=== PATIENT | male | born 1985 | race Caucasian/White ===

== ENCOUNTER 2016-08-06 11:03 | Emergency (ER) | payer OTHER ==
[~2016-08-06] VITALS: Ht 175.3 cm; Wt 85.0 kg
[2016-08-06 11:06] VITALS: Ht 175.3 cm; Wt 85.0 kg
[2016-08-06] MEDS ORDERED: KETOROLAC 30 MG INJ IM STA (11:43)
[2016-08-06] MEDS ORDERED: DIPHTH/TET/ACEL PERTUSS (ADULT) 0.5 ML VIAL IM* ONE (12:00)
--- NOTE | 2016-08-06 12:35 | RADRPT ---
PROCEDURE: XR left forearm. CLINICAL INDICATION: Pain. TECHNIQUE: Two views are available for review. COMPARISON: None. FINDINGS: No fracture or osseous lesion. Normal mineralization and alignment. Soft tissues are unremarkable. IMPRESSION: 1. No fracture or osseous abnormality involving the left forearm. RPTAT: EE .Dante Loera MD, Date Time Electronically viewed and signed by .Dante Loera MD, on 08/06/2016 12:39 .C/
[2016-08-06] MEDS ORDERED: IBUP-1542 PO (13:20)
[2016-08-06 13:36] VITALS: BP 160/80; PULSE 55; RESP 18; TEMP 98.1
--- NOTE | 2016-08-06 13:54 | ERD ---
ER Documentation Chief Complaint Date/Time DATE: 08/06/16 TIME: 13:46 Chief Complaint lt arm pain , smashed in roller machine at work HPI This is a 31-year-old male who presents to the ED with left arm pain due to crush injury. Patient was at work today when his left arm got pulled through a metal roller, patient was able to pull out his left arm. Patient developed left arm pain and swelling afterwards. Patient did not take any medications for symptom relief. Denies any fever, numbness, tingling or weakness. Pt unable to recall last tetanus immunization. Medical surgical history are unremarkable. ROS All systems reviewed and are negative except as per history of present illness. Medications Home Meds Active Scripts Ibuprofen* (Motrin*) 600 Mg Tab, 600 MG PO Q6H Y for PAIN AND OR ELEVATED TEMP, #30 TAB Prov:ERROL CEDEÑO 08/06/16 PMhx/Soc Medical and Surgical Hx: pt denies Medical Hx, pt denies Surgical Hx Hx Alcohol Use: No Hx Substance Use: No Hx Tobacco Use: No Smoking Status: Never smoker Physical Exam Vitals Vital Signs Date Time Temp Pulse Resp B/P Pulse Ox O2 Delivery O2 Flow Rate FiO2 08/06/16 13:36 98.1 55 18 160/80 98 Room Air 08/06/16 11:06 98.1 78 18 166/81 98 Physical Exam Physical Exam CONST: Well-developed, well-nourished, in no acute distress. Nontoxic in appearance. HEENT: Atraumatic. Normal conjunctiva. EOM intact. TM intact. External ear is normal. Clear oropharnyx without erythema. No uvular deviation. Moist mucous membranes. Supple neck. No meningismus. No submandibular induration. RESP: Clear to auscultation bilaterally. No wheezing. CARDIO: Regular rate and rhythm, no murmurs. ABD: Soft, non tender, non distended. Normal bowel sounds. No McBurney's point tenderness. No guarding or rigidity. No peritoneal signs. SKIN: Multiple small abrasions on left forearm. No active bleeding. No foreign body or erythema. No petechiae or rashes. BACK: No midline or flank tenderness. EXT: Localized swelling on left forearm. Distal pulses equal and bilateral. NEURO: Awake and alert, appropriate for age. 5/5 strength in all extremities. Normal speech. Steady gait. Results 24 hrs Current Medications Medications (Trade) Dose Ordered Sig/John Route PRN Reason Start Time Stop Time Status Last Admin Dose Admin Diphtheria/ Tetanus/Acell Pertussis (Adacel) 0.5 ml ONCE ONCE IM* 08/06/16 12:00 08/06/16 12:01 DC 08/06/16 12:04 Ketorolac Tromethamine (Toradol) 30 mg ONCE STAT IM 08/06/16 11:43 08/06/16 11:45 DC PROCEDURE: XR left forearm. CLINICAL INDICATION: Pain. TECHNIQUE: Two views are available for review. COMPARISON: None. FINDINGS: No fracture or osseous lesion. Normal mineralization and alignment. Soft tissues are unremarkable. IMPRESSION: 1. No fracture or osseous abnormality involving the left forearm. RPTAT: EE .Dante Loera MD, MD Date Time Electronically viewed and signed by .Dante Loera MD, MD on 08/06/2016 12:39 Procedures/MDM EMERGENCY DEPARTMENT COURSE/MEDICAL DECISION MAKING This is a 30-year-old male who comes to the emergency room secondary to complaints of left arm pain secondary to crushing injury. Toradol IM was ordered but patient refused, patient does not want to take any pain medications at this time. Tdap was given and wound care was performed on the left forearm abrasion. Left upper arm sling was also ordered. X-rays left forearm was done to rule out fracture and was interpreted by a radiologist. Results is negative. My primary diagnosis is injury of left arm. Differential diagnoses considered but not limited to fracture, foreign body, osteomyelitis, muscle strain, dislocation. Pt is hemodynamically stable upon reassessment. There are no new complaints during the ED course. The patient was discharged for outpatient management with a prescription for ibuprofen. The patient was advised to followup with an orthopedist and with his PMD in 1-2 days. Patient was also instructed to return to the Emergency Department if there are any new or worsening symptoms. The patient understood and agreed with the diagnosis, treatment and plan. Patient is stable for discharge at this time. Departure Diagnosis: Primary Impression: Injury of left lower arm Encounter type: initial encounter Qualified Code: S59.912A - Injury of left lower arm, initial encounter Condition: Stable Patient Instructions: Muscle Strain, Extremity Referrals: [facility] YOU HAVE RECEIVED A MEDICAL SCREENING EXAM AND THE RESULTS INDICATE THAT YOU DO NOT HAVE A CONDITION THAT REQUIRES URGENT TREATMENT IN THE EMERGENCY DEPARTMENT. FURTHER EVALUATION AND TREATMENT OF YOUR CONDITION CAN WAIT UNTIL YOU ARE SEEN IN YOUR DOCTORS OFFICE WITHIN THE NEXT 1-2 DAYS. IT IS YOUR RESPONSIBILITY TO MAKE AN APPOINTMENT FOR FOLOW-UP CARE. IF YOU HAVE A PRIMARY DOCTOR --you should call your primary doctor and schedule an appointment IF YOU DO NOT HAVE A PRIMARY DOCTOR YOU CAN CALL OUR PHYSICIAN REFERRAL HOTLINE AT IF YOU CAN NOT AFFORD TO SEE A PHYSICIAN YOU CAN CHOSE FROM THE FOLLOWING [facility] [address] [facility] [address] [facility] [address] [facility] [address] [facility] [address] [facility] [facility] [address] [facility] [facility] Urgent Care 7 a.m.- 11 p.m. Every Day of the Week NO APPOINTMENT OR AUTHORIZATION NEEDED Additional Instructions: Call your primary care doctor tomorrow for an appointment during the next 1-2 days and request for an othropedic specialist referral. Return to the emergency department immediately should you have any new or worsening symptoms. Take all medications as directed. ERROL CEDEÑO August 06, 2016 13:54
== END 2016-08-06 13:37 | disposition home or self-care (01) ==
LOC: E/R 11:03 → FTE 13:37
DX: S59.912A Unspecified injury of left forearm, initial encounter (principal); W23.1XXA Caught, crushed, jammed, or pinched between stationary objects, initial encounter; Y92.9 Unspecified place or not applicable; Z23 Encounter for immunization
CPT/HCPCS: 73090; 90471; 90715; 99283; J1885